=== PATIENT | female | born 1990 | race Caucasian/White ===

== ENCOUNTER 2023-10-20 01:22 | Emergency (ER) | payer OTHER ==
[~2023-10-20] VITALS: Ht 157.5 cm; Wt 72.6 kg
[2023-10-20 01:32] VITALS: BP_SYST 131; PULSE 66; RESP 20; TEMP 97.8; O2SAT 100
[2023-10-20] MEDS: ONDANSETRON 4 MG ODT TAB PO ONE (01:56)
[2023-10-20] MEDS: KETOROLAC TROMETHAMINE 30 MG VIAL IM ONE (01:57)
[2023-10-20 02:23] VITALS: BP_SYST 131; PULSE 71; RESP 18; TEMP 97.8; O2SAT 100
== END 2023-10-20 02:31 | disposition home or self-care (01) ==
LOC: SED 01:22
DX: G43.909 Migraine, unspecified, not intractable, without status migrainosus (principal); R11.0 Nausea; Z79.899 Other long term (current) drug therapy
CPT/HCPCS: 99283; 96372; Q0162; J1885

== ENCOUNTER 2023-11-21 09:21 | Emergency (ER) | payer OTHER ==
[~2023-11-21] VITALS: Ht 157.5 cm; Wt 72.6 kg
[2023-11-21 09:21] VITALS: BP_SYST 120; PULSE 70; RESP 18; TEMP 97.4; O2SAT 99
[2023-11-21] MEDS: ONDANSETRON 4 MG ODT TAB PO ONE (09:48)
[2023-11-21] MEDS: KETOROLAC TROMETHAMINE 30 MG VIAL IM ONE (09:49)
[2023-11-21 11:33] VITALS: BP_SYST 128; PULSE 77; RESP 18; TEMP 97.9; O2SAT 99
== END 2023-11-21 11:20 | disposition home or self-care (01) ==
LOC: SED 09:21
DX: G43.909 Migraine, unspecified, not intractable, without status migrainosus (principal); H53.149 Visual discomfort, unspecified
CPT/HCPCS: 99283; 96372; Q0162; J1885